=== PATIENT | female | born 1960 | race Caucasian/White ===

== ENCOUNTER 2018-06-12 14:16 | Emergency (ER) | payer BC ==
[2018-06-12 16:29] VITALS: BP 160/93
--- NOTE | 2018-06-12 17:50 | UC ---
Complaint Female HPI - HPI Summary HPI Summary: Ms. Bustillo presents with 4-5 days of mild left back pain and 2 days of hematuria. She has no fever or other symptoms. - History Of Current Complaint Chief Complaint: UCGU Stated Complaint: URINARY ISSUE Time Seen by Provider: 06/12/18 16:32 Hx Obtained From: Patient Onset/Duration: Gradual Onset Timing: Constant Severity Initially: Mild Severity Currently: Moderate Pain Intensity: 3 Aggravating Factor(s): Movement - Walking or driving in a car Associated Signs And Symptoms: Positive: Back Pain - Allergies/Home Medications Allergies/Adverse Reactions: Allergies Allergy/AdvReac Type Severity Reaction Status Date / Time latex Allergy BURNING Verified 06/12/18 16:30 Penicillins Allergy RASH, Verified 06/12/18 16:30 ITCHING Home Medications: Home Medications Multivitamin [Multivitamins] 1 each PO DAILY 06/12/18 [History Confirmed ] Rosuvastatin Calcium [Crestor] 20 mg PO DAILY 06/12/18 [History Confirmed ] PMH/Surg Hx/FS Hx/Imm Hx Previously Healthy: Yes Endocrine History: Diabetes, Dyslipidemia GI/ History: Kidney Stones - Surgical History Surgical History: Yes Surgery Procedure, Year, and Place: eyes bilat as child. kidney stone removal 2014 - Family History Known Family History: Positive: Unknown, Cardiac Disease - Father, grandfather. , Respiratory Disease - Emphysema - mother Family History: Father [place] age 38 - Social History Alcohol Use: Rare Substance Use Type: None Smoking Status (MU): Never Smoked Tobacco - Immunization History Most Recent Tetanus Shot: 1998 Review of Systems All Other Systems Reviewed And Are Negative: Yes Genitourinary: Positive: Hematuria Physical Exam - Summary Physical Exam Summary: She is non-toxic in appearance with stable vitals. Triage Information Reviewed: Yes Appearance: Well-Appearing, No Pain Distress Vital Signs: Initial Vital Signs Temp 98.4 F 06/12/18 16:25 Pulse 109 06/12/18 16:25 Resp 16 06/12/18 16:25 BP 160/93 06/12/18 16:25 Pulse Ox 99 06/12/18 16:25 Vital Signs Reviewed: Yes Neck exam: Normal Abdominal Exam: Normal Abdomen Description: Positive: Nontender Musculoskeletal Exam: Normal - No CVAT Complaint Female Dx - Course Course Of Treatment: Ms. Bustillo was found to have a left mid ureter with mild hydronephrosis. Her U/ A was positive for blood but had no evidence for infection. I will treat her as an outpatient and refer to urology. - Differential Dx/Diagnosis Provider Diagnosis: Kidney stone on left side Discharge - Sign-Out/Discharge Documenting (check all that apply): Patient Departure All imaging exams completed and their final reports reviewed: Yes - Discharge Plan Condition: Stable Disposition: HOME Patient Education Materials: Kidney Stones (ED) Referrals: Christina Gabriel MD [Primary Care Provider] - Rojas Monson MD [Medical Doctor] - - Billing Disposition and Condition Condition: STABLE Disposition: Home
== END 2018-06-12 18:10 | disposition home or self-care (01) ==
LOC: UCEAST 14:16
DX: N13.2 Hydronephrosis with renal and ureteral calculous obstruction (principal); R31.9 Hematuria, unspecified; Z87.442 Personal history of urinary calculi; E11.9 Type 2 diabetes mellitus without complications; E78.5 Hyperlipidemia, unspecified; Z88.0 Allergy status to penicillin; Z91.040 Latex allergy status
CPT/HCPCS: 74176; 81003; 99212; G0463